=== PATIENT | female | born 1985 | race Caucasian/White ===

== ENCOUNTER 2016-12-21 23:16 | Emergency (ER) ==
[2016-12-21 23:30] VITALS: BP 141/86; TEMP 98.6; BMI 32.2
--- NOTE | 2016-12-22 00:08 | ED.PDOC ---
General ED Provider: Dr. SJ LANCASTER Chief Complaint: Neck Injury Stated Complaint: Patient states she was thrown off horse today at about 530 pm. According to her the horse rared up, pt slid off the back, landed on the ground on her back. Now c/o pain in shoulder blades radiated up neck. Pain is worse with movement. Denies any loss of conciousness. Time Seen by Physician: 11:45 Mode of Arrival: Walk-In Information Source: Patient Exam Limitations: No limitations Primary Care Provider: YVONNE MURDOCK Nursing and Triage Documentation Reviewed and Agree: Yes Trauma/Injury Complaint Exam - Trauma Complaint/Exam Location of Pain or Injury: Reports: Head, Neck, Back Mechanism of Injury: Reports: Fall (off a horse ) Onset/Duration: 6 hours ago Symptoms Are: Still present Timing of Treatment: Immediate Initial Severity: Severe Current Severity: Severe Character: Reports: Aching, Stabbing Aggravating: Reports: Movement Alleviating: Reports: Ice Associated Signs and Symptoms: Denies: LOC, Confusion, Memory loss, Lethargy, Vomiting, Bleeding, Bruising, Swelling, Extremity disuse, Painful respiration, Hoarseness, Dysphagia, Hemoptysis, Significant blood loss Related History: Denies: Alcohol abuse, Drug abuse, Alleged assault : No Compartment Syndrome Risk Factors: Present: Pain Trauma Findings: Present: Neck tenderness, Neck spasm, Limited ROM. Absent: [place] eyes Skin Findings: Present: Normal findings Differential Diagnoses: Sprain, Strain Body Picture: 1 - tendeness to palpation Review of Systems - Review Of Systems Constitutional: Reports: No symptoms Eyes: Reports: No symptoms Ears, Nose, Mouth, Throat: Reports: No symptoms Respiratory: Reports: No symptoms Cardiac: Reports: No symptoms GI: Reports: No symptoms : Reports: No symptoms Musculoskeletal: Reports: Back pain, Neck pain Skin: Reports: No symptoms Neurological: Reports: Anxiety, Headache Endocrine: Reports: No symptoms Hematologic/Lymphatic: Reports: No symptoms All Other Systems: Reviewed and Negative Past Medical History - Past Medical History Previously Healthy: Yes Endocrine: Reports: None Cardiovascular: Reports: Hypertension Respiratory: Reports: None Hematological: Reports: None Gastrointestinal: Reports: None Genitourinary: Reports: None Neuro/Psych: Reports: Depression Musculoskeletal: Reports: None Cancer: Reports: None Last Menstrual Period: 06/25 Other Pertinent Past Medical History: Opiate dependence - Surgical History General Surgical History: Reports: Tubal ligation ( tubal14), Tonsillectomy ( [id number]), Unknown - Family History Family History: Reports: Unknown - Social History Smoking Status: Current some day smoker, Heavy tobacco smoker Hx Substance Use: No Alcohol Screening: None - Immunizations Tetanus Shot up to Date: Yes Physical Exam - Physical Exam Appearance: Obese Ill-appearing: Mild Pain Distress: Severe Neck: Supple Respiratory: Airway patent, Breath sounds clear, Breath sounds equal, Respirations nonlabored Cardiovascular: RRR, Pulses normal, No rub, No murmur GI/: Soft, Nontender, No masses, Bowel sounds normal, No Organomegaly Musculoskeletal: No calf tenderness, Limited ROM Skin: Warm, Dry, Normal color Neurological: Sensation intact, Reflexes intact, Cranial nerves intact, Alert, Oriented Psychiatric: Anxious Interpretation - Radiology Interpretation Radiology Interpretation By: Radiologist Radiology Results: Negative Exam Interpreted: CT Scan (head chest, c spine and lumber spine ) Critical Care Note - Critical Care Note Total Time (mins): 0 Course - Course Orders, Labs, Meds: Orders Category Date Time Status Ketorolac Tromethamine [Toradol] MEDS 12/21/16 23:54 Discontinued 60 mg IM ONCE STA CT CERVICAL SPINE W/O CONTRAST Stat RADS 12/21/16 23:[address] CHEST W/O CONTRAST Stat RADS 12/21/16 23:[address] HEAD W/O CONTRAST Stat RADS 12/21/16 23:[address] LUMBAR SPINE W/O CONTRAST Stat RADS 12/21/16 23:51 Ordered Medications Discontinued Medications Generic Name Dose Route Start Last Admin Trade Name Freq PRN Reason Stop Dose Admin Ketorolac Tromethamine 60 mg 12/21/16 23:54 12/22/16 00:13 Toradol IM 12/21/16 23:55 60 mg ONCE STA Administration Vital Signs: Temp Pulse Resp BP Pulse Ox 12/21/16 23:17 98.6 F 97 H 18 141/86 H 97 Departure - Departure Time of Disposition: :17 Disposition: HOME SELF-CARE Discharge Problem: Back sprain Neck sprain Qualifiers: Encounter type: initial encounter Qualifier Code: (S13.9XXA) Sprain of joints and ligaments of unspecified parts of neck, initial encounter Instructions: Back Pain (ED) Condition: Fair Pt referred to PMD for follow-up: Yes Additional Instructions: Take Ibuprofen as needed Take Flexeril as needed for spasm Follow up with PCP in 3 days Prescriptions: Cyclobenzaprine HCl [Flexeril] 5 mg PO TID PRN #14 tablet PRN Reason: Spasms Allergies/Adverse Reactions: Allergies Penicillins Adverse Reaction (Verified 12/21/16 23:27) strawberries Adverse Reaction (Uncoded 12/21/16 23:27) Home Medications: Ambulatory Orders Buprenorphine HCl/Naloxone HCl [Suboxone 8 Mg-2 Mg Sl Film] 8 mg SL BID film Citalopram Hydrobromide [Celexa] 20 mg PO BID 07/26/14 Hydrochlorothiazide 12.5 mg PO DAILY 03/30/16 Ibuprofen [Motrin] 600 mg PO Q6H PRN #30 tablet 09/08/16 Cyclobenzaprine HCl [Flexeril] 5 mg PO TID PRN #14 tablet 12/22/16 Disposition Discussed With: Patient, Family
[2016-12-22] MEDS: TORADOL IM STA (00:13)
--- NOTE | 2016-12-22 00:37 | CT ---
EXAM: CT brain without contrast HISTORY: Fall from horse TECHNIQUE: CT of the brain without intravenous contrast FINDINGS: There is no acute hemorrhage midline shift or mass effect. No hydrocephalus or abnormal extra-axial fluid collection. No significant parenchymal attenuation abnormality. The bony cranium appears normal. The visualized paranasal sinuses are clear. Soft tissues without significant abnorm ality. IMPRESSION: 1. CT of the brain within normal limits.
--- NOTE | 2016-12-22 00:39 | CT ---
Exam: CT of the chest without contrast History: Fall from horse with injury and pain Technique: [address] of the chest without intravascular contrast FINDINGS: The lung windows show no infiltrative opacities, suspicious nodules or masses. No pleura l fluid or pneumothorax. Heart, great vessels and pericardium appear normal by noncontrast CT. No acute findings of the chest wall soft tissues. No acute findings of the bony thorax. No abnormalit ies of the upper abdomen. Impression: 1. No evidence of significant injury to the chest. No acute findings of the chest.
--- NOTE | 2016-12-22 01:14 | CT ---
EXAM: CT of the cervical spine without contrast. HISTORY: Trauma. PROCEDURE: Contiguous axial CT images of the cervical spine without contrast with coronal and sagit [place] reformats. FINDINGS: There is normal alignment of the cervical vertebral bodies and facets. The vertebral body heights are maintained. There is disc space narrowing at C6-C7. There are posterior osteophytes a t multiple levels of the cervical spine. The C1-2 relationship is maintained. No prevertebral soft tissue abnormality. Impression: No evidence of fracture. Normal alignment of the cervical spine with degenerative changes as described.
--- NOTE | 2016-12-22 01:20 | CT ---
EXAM: CT of the lumbar spine without contrast. HISTORY: Trauma. PROCEDURE: Contiguous axial CT images of the lumbar spine without contrast with coronal and sagitta l reformats. FINDINGS: There is normal alignment of the lumbar vertebral bodies and facets. The vertebral body h eights and intervertebral disc spaces are maintained. There is stranding of the posterior subcutane ous fat consistent with a contusion. Impression: Negative lumbar spine. Soft tissue contusion as described.
== END 2016-12-22 01:30 | disposition home or self-care (01) ==
LOC: ED 23:16
DX: S13.9XXA Sprain of joints and ligaments of unspecified parts of neck, initial encounter (principal); M54.9 Dorsalgia, unspecified; V80.010A Animal-rider injured by fall from or being thrown from horse in noncollision accident, initial encounter; F17.210 Nicotine dependence, cigarettes, uncomplicated
CPT/HCPCS: 96372; 99283

== ENCOUNTER 2017-02-22 12:58 | Outpatient (CLI) ==
[2017-02-22 13:31] LABS: BASOPHILS # (AUTO) 0.1 K/uL (0-0.2); BASOPHILS % (AUTO) 0.5 % (0.0-3.0); EOSINOPHILS # (AUTO) 0.5 K/ul (0.0-0.7); EOSINOPHILS % (AUTO) 5.1 % (0.0-7.0); HEMATOCRIT 37.9 % (37.0-47.0); HEMOGLOBIN 12.9 g/dl (12.0-16.0); IMMATURE GRANULOCYTE % (AUTO) 0.6 % (0.0-5.0); LYMPHOCYTES # (AUTO) 1.6 K/uL (0.60-3.4); LYMPHOCYTES % (AUTO) 16.7 (10.0-50.0); MEAN CORPUSCULAR HEMOGLOBIN 30.1 pg (27.0-31.0); MEAN CORPUSCULAR VOLUME 88.3 fl (81.0-99.0); MONOCYTES # (AUTO) 0.6 K/uL (0.4-2.0); MONOCYTES % (AUTO) 6.3 (0-10); NEUTROPHILS # (AUTO) 6.7 K/ul (2.0-6.9); NEUTROPHILS % (AUTO) 70.8; PLATELET COUNT 309 10^3/uL (140-440); RED BLOOD COUNT 4.29 10^6/ul (4.20-5.40); WHITE BLOOD COUNT 9.53 K/ul (4.6-10.2)
[2017-02-22 13:47] LABS: SERUM PREGNANCY INTERNAL QC INTERNAL QC VALID
[2017-02-22 14:16] LABS: ALBUMIN 3.6 g/dL (3.4-5.0); ANION GAP 12.5; BILIRUBIN,TOTAL 0.46 mg/dL (0.00-1.20); BUN/CREATININE RATIO 6.25; CALCIUM 8.9 mg/dL (8.2-10.2); CHOL/HDL RATIO 8.1 (4.5-5.5); CREATININE 0.64 mg/dL (0.60-1.30); POTASSIUM 3.5 mmol/L (3.5-5.10); TOTAL PROTEIN 7.2 g/dL (6.4-8.2)
== END 2017-02-22 12:59 | disposition home or self-care (01) ==
LOC: LAB 12:58
PROVIDERS: ATTEND Internal Medicine
DX: I10 Essential (primary) hypertension (principal); E78.5 Hyperlipidemia, unspecified; E66.9 Obesity, unspecified
CPT/HCPCS: 36415; 80053; 80061; 83036; 84443; 84703; 85025

== ENCOUNTER 2017-02-28 10:45 | Outpatient (CLI) ==
--- NOTE | 2017-02-28 12:02 | CT ---
EXAM: CT of the abdomen pelvis with and without contrast History: Abdominal pain. Comparison: CT abdomen pelvis 09/08/2016 Technique: Multiplanar CT images through the abdomen pelvis were obtained with and without the admi nistration of IV contrast. Findings: Lung bases are free of consolidation. No acute osseous abnormalities. No renal stones and no hydronephrosis. No discrete gallstones identified by CT. No focal liver or splenic lesions. Pancreas is within nor mal limits. Adrenal glands are unremarkable. No renal masses. The appendix is normal. Fluid seen in the stomach. Nondilated fluid filled loops of small bowel. Fluid seen in the right side of the colon. Scattered colonic stool. No free air. No ascites. No bladder wall thickening. Adnexal s tructures appear appropriate for patient's age. No perirectal inflammation. Impression: CT findings are suggestive of a mild gastroenteritis. No specific evidence for bowel o bstruction.
== END 2017-02-28 10:46 | disposition home or self-care (01) ==
LOC: RAD 10:45
PROVIDERS: ATTEND Internal Medicine
DX: N91.2 Amenorrhea, unspecified (principal); R10.9 Unspecified abdominal pain

== ENCOUNTER 2017-06-08 14:50 | Emergency (ER) ==
[2017-06-08 15:18] VITALS: BP 128/82; TEMP 98.6; BMI 31.7
--- NOTE | 2017-06-08 15:28 | ED.PDOC ---
General ED Provider: Dr. RYNE STEWARD JR Chief Complaint: Urinary Problem Stated Complaint: Dysuria. Urinary frequency and voids small amts. [ End ]1 day 98.6 87 20 98% 128/82 04/18. [ End ]OPIATE DEPENDENCY IN PAST htn depr Time Seen by Physician: 15:26 Mode of Arrival: Walk-In Information Source: Patient Exam Limitations: No limitations Primary Care Provider: SOPHIA HO Nursing and Triage Documentation Reviewed and Agree: No Review of Systems - Review Of Systems Constitutional: Reports: No symptoms Eyes: Reports: No symptoms Ears, Nose, Mouth, Throat: Reports: No symptoms Respiratory: Reports: No symptoms Cardiac: Reports: No symptoms GI: Reports: Abdominal pain : Reports: Burning, Dysuria, Flank pain, Other Musculoskeletal: Reports: No symptoms Skin: Reports: No symptoms Neurological: Reports: No symptoms Endocrine: Reports: No symptoms Hematologic/Lymphatic: Reports: No symptoms All Other Systems: Other Past Medical History - Past Medical History Previously Healthy: Yes Endocrine: Reports: None Cardiovascular: Reports: Hypertension Respiratory: Reports: None Hematological: Reports: None Gastrointestinal: Reports: None Genitourinary: Reports: None Neuro/Psych: Reports: Depression Musculoskeletal: Reports: None Cancer: Reports: None Last Menstrual Period: unknown Other Pertinent Past Medical History: Opiate dependence - Surgical History General Surgical History: Reports: Tubal ligation ( tubal14 , TUBAL lig 07/25), Tonsillectomy ([id number] ), Adenoidectomy, Other (EAR TUBES) - Family History Family History: Reports: Unknown - Social History Smoking Status: Current some day smoker, Light tobacco smoker Hx Substance Use: No Alcohol Screening: None Physical Exam - Physical Exam Appearance: Well-appearing Pain Distress: Moderate Eyes: ALICIA, EOMI, Conjunctiva clear ENT: Ears normal, Nose normal, Oropharynx normal Neck: Supple Respiratory: Airway patent, Breath sounds clear, Breath sounds equal, Respirations nonlabored Cardiovascular: RRR, Pulses normal, No rub, No murmur GI/: Soft, Tender (both CVA tender and right injuinal tenderness ) Musculoskeletal: Normal strength, ROM intact, No edema, No calf tenderness Skin: Warm, Dry, Normal color Neurological: Sensation intact, Motor intact, Reflexes intact, Cranial nerves intact, Alert, Oriented Psychiatric: Affect appropriate, Mood appropriate Critical Care Note - Critical Care Note Total Time (mins): 5 Course - Course Orders, Labs, Meds: Lab Review 06/08/17 15:20 Urine Color Yellow Urine Clarity Clear Urine pH 7.0 Ur Specific [place] 1.010 Urine Protein Negative Urine Glucose (UA) Negative Urine Ketones Negative Urine Blood Trace-intact Urine Nitrite Negative Urine Bilirubin Negative Urine Urobilinogen 1.0 Ur Leukocyte Esterase Negative Urine Microscopic RBC 0-2 Ur Squamous Epith Cells 0-2 Orders Category Date Time Status UA [URINALYSIS C & S IF INDICATED] Stat LAB 06/08/17 15:20 Completed Ketorolac Tromethamine [Toradol] MEDS 06/08/17 15:51 Discontinued 60 mg IM ONCE STA CT ABD/PEL WO RENAL STONE PROT Stat RADS 06/08/17 15:50 Completed Medications Discontinued Medications Generic Name Dose Route Start Last Admin Trade Name Freq PRN Reason Stop Dose Admin Ketorolac Tromethamine 60 mg 06/08/17 15:51 06/08/17 16:00 Toradol IM 06/08/17 15:52 60 mg ONCE STA Administration Vital Signs: Temp Pulse Resp BP Pulse Ox 06/08/17 14:51 98.6 F 87 20 128/82 98 Departure - Departure Time of Disposition: 16:41 Disposition: HOME SELF-CARE Discharge Problem: Urinary symptoms, Abdominal pain Instructions: Acute Abdominal Pain (ED), Flank Pain (ED) Condition: Fair Pt referred to PMD for follow-up: Yes Additional Instructions: toradol or aleve for pain do not take both together increase fluids 6-10 eight ounce cups a day return if fever if worsening symptoms recheck PMD one week may use pyridium for painful urination may use bentyl for spasmodic pain Prescriptions: Dicyclomine HCl [Bentyl] 10 mg PO QID PRN #30 capsule PRN Reason: Spasms Ketorolac Tromethamine [Toradol] 10 mg PO QID PRN #20 tablet PRN Reason: PAIN Phenazopyridine HCl [Pyridium] 200 mg PO TID PRN #10 tablet PRN Reason: PAIN Allergies/Adverse Reactions: Allergies Penicillins Adverse Reaction (Verified 06/08/17 15:26) strawberries Adverse Reaction (Uncoded 12/21/16 23:27) Home Medications: Ambulatory Orders Buprenorphine HCl/Naloxone HCl [Suboxone 8 Mg-2 Mg Sl Film] 8 mg SL BID film 10 /17/14 Citalopram Hydrobromide [Celexa] 20 mg PO BID 07/26/14 Hydrochlorothiazide 12.5 mg PO DAILY 03/30/16 Dicyclomine HCl [Bentyl] 10 mg PO QID PRN #30 capsule 06/08/17 Ketorolac Tromethamine [Toradol] 10 mg PO QID PRN #20 tablet 06/08/17 Phenazopyridine HCl [Pyridium] 200 mg PO TID PRN #10 tablet 06/08/17
[2017-06-08 15:33] LABS: BILIRUBIN,URINE Negative (NEGATIVE); KETONES,URINE Negative (NEGATIVE); LEUKOCYTE ESTERASE ,URINE Negative (NEGATIVE); NITRITE,URINE Negative (NEGATIVE); PROTEIN,URINE Negative (NEGATIVE); URINE, BLOOD Trace-intact (NEGATIVE)
[2017-06-08 15:43] LABS: ADD URINE MICROSCOPIC YES
[2017-06-08] MEDS ORDERED: TORADOL IM STA (15:51)
--- NOTE | 2017-06-08 16:32 | CT ---
EXAM: CT Abdomen without contrast. CT Pelvis without contrast. HISTORY: Right flank pain. Right inguinal pain. COMPARISON: 02/28/2017. TECHNIQUE: Multiple axial images of the abdomen and pelvis were obtained without intravenous contra st. Images were reformatted in the coronal plane. FINDINGS: Please note that evaluation of the abdominal and pelvic structures is limited due to lack of intravenous contrast. Lung bases are clear. No acute osseous abnormality detected. The liver, gallbladder, pancreas, spleen, and adrenal glands demonstrate normal contour. No calcifi ed renal stones, hydronephrosis or perinephric inflammation identified. The bowel is normal in course and caliber without evidence for obstruction or inflammatory process. The appendix is normal. Uterus demonstrates normal contour. Urinary bladder is unremarkable. Pro minent fat noted in the right inguinal canal. No subcutaneous edema or fluid collections identified . No free fluid or free air seen within the abdomen or pelvis IMPRESSION: No acute abnormality in the abdomen or pelvis.
== END 2017-06-08 17:15 | disposition home or self-care (01) ==
LOC: ED 14:50
DX: R30.0 Dysuria (principal); R35.0 Frequency of micturition; R10.9 Unspecified abdominal pain; I10 Essential (primary) hypertension; F17.210 Nicotine dependence, cigarettes, uncomplicated; Z79.899 Other long term (current) drug therapy
CPT/HCPCS: 74176; 81001; 96372; 99283

== ENCOUNTER 2017-12-05 14:38 | Emergency (ER) ==
[2017-12-05 14:45] VITALS: BP 118/76; TEMP 97.6; BMI 34.0
--- NOTE | 2017-12-05 16:24 | ED.PDOC ---
General ED Provider: Dr. JANELLE SHINE Chief Complaint: Abdominal Pain Stated Complaint: Right Lowerr quadrant pain X 1 day Time Seen by Physician: 16:24 Mode of Arrival: Walk-In Information Source: Patient Exam Limitations: No limitations Primary Care Provider: SOPHIA HO Nursing and Triage Documentation Reviewed and Agree: Yes Reviewed sepsis parameters & appropriate labs ordered?: Yes System Inflammatory Response Syndrome: Not Applicable Sepsis Protocol: For patient's 13 years and over: Temp is 96.8 and below OR 101 and greater Pulse >90 BPM Resp >20/minute Acutely Altered Mental Status Are patient's symptoms suggestive of a new infection, such as: -Pneumonia -Skin, Soft Tissue -Endocarditis -UTI -Bone, Joint Infection -Implantable Device -Acute Abdominal Infection -Wound Infection -Meningitis -Blood Stream Catheter Infection -Unknown System Inflammatory Response Syndrome: Not Applicable GI Complaint Exam - Abdominal Pain Complaint/Exam Onset: Gradual Duration: Since this AM Symptoms Are: Still present Timing: Constant Initial Severity: Mild Current Severity: Moderate Location of Pain: RLQ Character: Reports: Sharp Aggravating: Reports: None Alleviating: Reports: None Related Surgical History: Reports: Tubal ligation (Jul 2016) Review of Systems - Review Of Systems Constitutional: Reports: No symptoms Respiratory: Reports: No symptoms GI: Reports: Nausea. Denies: Vomiting Musculoskeletal: Reports: No symptoms All Other Systems: Reviewed and Negative Past Medical History - Past Medical History Previously Healthy: Yes Endocrine: Reports: None Cardiovascular: Reports: Hypertension Respiratory: Reports: None Hematological: Reports: None Gastrointestinal: Reports: None Genitourinary: Reports: None Neuro/Psych: Reports: Depression Musculoskeletal: Reports: None Cancer: Reports: None Last Menstrual Period: 07/2016 Other Pertinent Past Medical History: Opiate dependence - Surgical History General Surgical History: Reports: Tubal ligation ( tubal14 , TUBAL lig 07/25), Tonsillectomy ([id number] ), Adenoidectomy, Other (EAR TUBES) - Family History Family History: Reports: Unknown - Social History Smoking Status: Current some day smoker, Light tobacco smoker Hx Substance Use: No Alcohol Screening: None Physical Exam - Physical Exam Appearance: Well-appearing Pain Distress: Mild (Point tender RLQ) Respiratory: Airway patent, Breath sounds clear, Breath sounds equal Cardiovascular: RRR, Pulses normal GI/: Soft, Tender (Mild subjective tenderness R Lower Quadrant; no rebound) Skin: Warm, Dry, Normal color Neurological: Alert, Oriented Psychiatric: Affect appropriate, Mood appropriate Interpretation - Radiology Interpretation Radiology Interpretation By: Radiologist Exam Interpreted: CT Scan (Abd pelvis negative - no inflammatory process, bowell or urinary obstruction - no acute findings) Re-Evaluation - Re-Evaluation Time of Re-Evaluation: 18:30 (Educated re [address] scan negative) Status: Unchanged Vital Signs Stable: Yes Appearance: NAD Critical Care Note - Critical Care Note Total Time (mins): 15 Course - Course Hematology/Chemistry: 12/05/17 16:30 12/05/17 16:30 Orders, Labs, Meds: Lab Review 12/05/17 12/05/17 12/05/17 16:30 16:30 16:30 WBC 17.06 H RBC 4.07 L Hgb 12.3 Hct 35.9 L MCV 88.2 MCH 30.2 MCHC 34.3 RDW Coeff of Karlos 12.8 Plt Count 284 Immature Gran % (Auto) 0.8 Neut % (Auto) 73.3 Lymph % (Auto) 16.2 Pershing % (Auto) 5.9 Eos % (Auto) 3.4 Baso % (Auto) 0.4 Immature Gran # (Auto) 0.1 Neut # 12.5 H Lymph # 2.8 Pershing # 1.0 Eos # 0.6 Baso # 0.1 Sodium 139 Potassium 3.3 L Chloride 102 Carbon Dioxide 31 Anion Gap 9.3 BUN 4 L Creatinine 0.63 Estimated GFR (MDRD) 110.00 BUN/Creatinine Ratio 6.34 Glucose 101 Calcium 8.9 Total Bilirubin 0.3 AST 20 ALT 18 Alkaline Phosphatase 84 Total Protein 6.8 Albumin 3.2 L Globulin 3.6 Albumin/Globulin Ratio 0.89 Serum , Qual Negative Urine Color Urine Clarity Urine pH Ur Specific Rudolph Urine Protein Urine Glucose (UA) Urine Ketones Urine Blood Urine Nitrite Urine Bilirubin Urine Urobilinogen Ur Leukocyte Esterase Urine Test 12/05/17 12/05/17 16:30 16:30 WBC RBC Hgb Hct MCV MCH MCHC RDW Coeff of Karlos Plt Count Immature Gran % (Auto) Neut % (Auto) Lymph % (Auto) Pershing % (Auto) Eos % (Auto) Baso % (Auto) Immature Gran # (Auto) Neut # Lymph # Pershing # Eos # Baso # Sodium Potassium Chloride Carbon Dioxide Anion Gap BUN Creatinine Estimated GFR (MDRD) BUN/Creatinine Ratio Glucose Calcium Total Bilirubin AST ALT Alkaline Phosphatase Total Protein Albumin Globulin Albumin/Globulin Ratio Serum , Qual Urine Color Yellow Urine Clarity Clear Urine pH 6.5 Ur Specific Rud[place] 1.010 Urine Protein Negative Urine Glucose (UA) Negative Urine Ketones Negative Urine Blood Negative Urine Nitrite Negative Urine Bilirubin Negative Urine Urobilinogen 0.2 Ur Leukocyte Esterase Negative Urine Test Negative Orders Category Date Time Status CBC W/ AUTO DIFF Stat LAB 12/05/17 16:30 Completed COMPREHENSIVE METABOLIC PANEL Stat LAB 12/05/17 16:30 Completed SERUM Stat LAB 12/05/17 16:30 Completed URINALYSIS C & S IF INDICATED Stat LAB 12/05/17 16:30 Completed URINE Stat LAB 12/05/17 16:[address] ABDOMEN/PELVIS WO CONTRAST Stat RADS 12/05/17 17:22 Completed Vital Signs: Temp Pulse Resp BP Pulse Ox 12/05/17 14:38 97.6 F 77 20 118/76 92 L Departure - Departure Time of Disposition: 18:39 Disposition: HOME SELF-CARE Discharge Problem: Abdominal pain Qualifiers: Abdominal location: right lower quadrant Qualified Code(s): R10.31 - Right lower quadrant pain Instructions: Acute Abdominal Pain (ED) Condition: Good Pt referred to PMD for follow-up: Yes (Call for follow up) IPMP verified?: No (Narcotic pain medication not prescribed) Additional Instructions: Follow up as needed with primary care; return to ER if fever 101.5 or above, increased pain and vomiting or other concerns. Allergies/Adverse Reactions: Allergies Penicillins Adverse Reaction (Verified 12/05/17 14:45) strawberries Adverse Reaction (Uncoded 12/21/16 23:27) Home Medications: Ambulatory Orders Buprenorphine HCl/Naloxone HCl [Suboxone 8 Mg-2 Mg Sl Film] 8 mg SL BID film Citalopram Hydrobromide [Celexa] 20 mg PO BID 07/26/14 Hydrochlorothiazide 12.5 mg PO DAILY 03/30/16
--- NOTE | 2017-12-05 18:12 | CT ---
Exam: CT of the abdomen and pelvis without contrast History: Right lower quadrant pain Technique: [address] of the abdomen and pelvis without intravascular contrast FINDINGS: The lung bases are clear. No significant liver abnormality. The adrenals, pancreas and spl een are unremarkable. The stomach and hiatus are unremarkable.The gallbladder appears normal. Kidneys and proximal collecting system are unremarkable. The appendix is normal. Bowel loops demonstrate nor mal caliber. No inflamatory change seen in the mesentery or retroperitoneum. Vascular structures appe ar normal. Pelvic genitourinary structures appear normal. Pelvic bowel loops are unremarkable. No inflammatory c hange in the pelvic fat. No acute abnormality of the abdominal or pelvic skeleton. Impression: 1. No inflammatory process, bowel or urinary obstruction. No acute findings of the abdomen or pelvi s.
== END 2017-12-05 18:53 | disposition home or self-care (01) ==
LOC: ED 14:38
DX: R10.31 Right lower quadrant pain (principal); F17.210 Nicotine dependence, cigarettes, uncomplicated
CPT/HCPCS: 36415; 80053; 81001; 81025; 84703; 85025; 99283

== ENCOUNTER 2018-01-10 14:28 | Outpatient (CLI) | END 2018-01-10 14:29 | disposition home or self-care (01) | LOC: LAB 14:28 | PROVIDERS: ATTEND Internal Medicine | DX: F41.9 Anxiety disorder, unspecified (principal); I10 Essential (primary) hypertension; E78.5 Hyperlipidemia, unspecified | CPT/HCPCS: 36415; 80053; 80061; 82306; 82607; 83036; 84439; 84443; 85025 ==

== ENCOUNTER 2024-12-04 11:51 | Observation (INO) ==
[2024-12-04 12:32] LABS: BILIRUBIN,URINE Negative (NEGATIVE); CLARITY,URINE Clear (CLEAR); COLOR,URINE Light (YELLOW); GLUCOSE, URINE (UA) Negative (NEGATIVE); KETONES,URINE Trace (NEGATIVE); LEUKOCYTE ESTERASE ,URINE Negative (NEGATIVE); NITRITE,URINE Negative (NEGATIVE); PROTEIN,URINE 2+ (NEGATIVE); URINE, BLOOD Negative (NEGATIVE)
[2024-12-04] MEDS: ZOFRAN ODT PO STA (13:05)
[2024-12-04 13:18] LABS: MOLECULAR FLU A NEGATIVE BY NAAT (NEGATIVE); MOLECULAR FLU B NEGATIVE BY NAAT (NEGATIVE); SARS COV-2 RNA RAPID NAAT NEGATIVE (NEGATIVE)
--- NOTE | 2024-12-04 13:20 | DI ---
EXAM: FRONTAL CHEST RADIOGRAPH(S). 1 VIEW. History: Chest pain, shortness of breath Comparison: 06/03/2020 Findings: Heart size normal. No pneumothorax or pleural effusion. Patchy opacities in the lateral ri ght lung base secondary to pneumonia, atelectasis, or parenchymal scarring. Impression: Please see above.
--- NOTE | 2024-12-04 13:35 | ED.PDOC ---
General ED Provider: Dr. MICHAEL GUTIERREZ DO Chief Complaint: Cough Stated Complaint: 38-year-old female presents to the ER with cough and feeling unwell. Generalized body aches. No known sick contacts. She reports a nonproductive cough as well as subjective fever. She reports nausea without vomiting. Denies of abdominal pain, melena, medic easier, diarrhea or constipation. History of hypertension as well as diabetes. History otherwise reviewed in chart. Time Seen by Provider: 12/04/24 11:53 Information Source: Patient Primary Care Provider: SOPHIA HO MD Nursing and Triage Documentation Reviewed and Agree: Yes What is Opioid Naive?: *Opioid Naive implies the patient is not already taking opioids or not chronically receiving opioids on a daily basis. *PRN dosing is not "usually" associated with tolerance. *Patients are at higher risk of over-sedation and aspiration. What is Opioid Tolerant?: *Opioid Tolerance implies less than the expected response to an opioid. *Acquired tolerance is defined by the patient taking 60mg of oral morphine daily (or equianalgesic dose of another opioid) for 1 week or more. *Often associated with chronic pain. *May take more than usual dose to achieve desired pain control. Review of Systems Review Of Systems Constitutional: Reports No symptoms All Other Systems: Reviewed and Negative [facility] Medical History Postcholecystectomy diarrhea R19.7 - Diarrhea, unspecified (ICD-10) Z90.49 - Acquired absence of other specified parts of digestive tract (ICD- 10) Other specified events, undetermined intent, initial encounter history of drug abuse Y33.XXXA - Other specified events, undetermined intent, initial encounter (ICD-10) Family History Mother Cerebrovascular accident Hypertension FATHER Hypertension Grandfather/Grandmother Cardiac disease Hypertension Other Diabetes Social History Smoking and tobacco status: Current every day smoker Tobacco type: cigarettes Smoking packs per day: 1 Alcohol intake: former Counseling given: No Counseling provided: none Substance use type: does not use and former substance user Counseling given: No Counseling provided: none Elizabeth/jehovah's witness: PRESBYTERIAN Special elizabeth needs: No Adopted: No Foster care: No Household members: spouse and children Marital status: M Lives independently: No Number of children: 4 service: No Current occupational status: unemployed Current occupational exposures/hazards: No Pets and animals: Yes History of recent travel: No Sexually active: Yes Do you think of yourself as: straight/heterosexual Current gender identity: female Seatbelt use: always Helmet use: Yes Drives intoxicated or rides with intoxicated over the road driver: No Water heater temperature set < 120 degrees: Yes Working smoke detector in home: Yes Fire extinguisher in home: Yes Carbon monoxide detector in home: Yes Surgical History H/O tubal ligation Z98.51 - Tubal ligation status (ICD-10) Status post tonsillectomy and adenoidectomy Z90.89 - Acquired absence of other organs (ICD-10) Female Reproductive History Menstrual Hx Hysterectomy: Yes Hx Tubal Ligation: Yes Physical Exam Physical Exam Appearance: Reports Ill-appearing, No pain distress and Well-nourished Ill-appearing: Mild ENT: Reports Ears normal, Nose normal and Oropharynx normal Neck: Supple Respiratory: Reports Airway patent and Respirations nonlabored Cardiovascular: Reports RRR and Pulses normal GI/: Reports Soft and Nontender Musculoskeletal: Reports Normal strength and ROM intact Skin: Reports Warm, Dry and Normal color Neurological: Reports Sensation intact, Motor intact, Alert and Oriented Psychiatric: Reports Affect appropriate and Mood appropriate Interpretation Radiology Interpretation Radiology Interpretation By: Radiologist Radiology Results: Positive (Right basilar opacities) Exam Interpreted: Portable CXR Xray Comments: Suspect pneumonia Re-Evaluation Re-Evaluation Additional Comments: 38-year-old female presents to the ER with cough and subjective fever as well as nausea. She does have a cough during exam. She is afebrile nontoxic. Doubt sepsis. Pneumonia not excluded given her history of diabetes. Viral swabs negative. Chest x-ray concerning for possible pneumonia which would coincide with the physical exam and suspicion. This said, we will begin treatment. Penicillin allergy therefore we will utilize Levaquin. Breathing treatment given symptomatically. Low suspicion for other acute cardiopulmonary or intra-abdominal process at this time. I do not feel other emergent labs or imaging are necessary at this time and patient has been treated and stabilized in the emergency department ready for discharge. Course Course Orders, Labs, Meds: Lab Review 12/04/24 12/04/24 12:24 12:45 Urine Color Light Urine Clarity Clear Urine pH 6.0 Ur Specific [place] 1.015 Urine Protein 2+ H Urine Glucose (UA) Negative Urine Ketones Trace H Urine Blood Negative Urine Nitrite Negative Urine Bilirubin Negative Urine Urobilinogen 1.0 H Ur Leukocyte Esterase Negative Urine Microscopic RBC 2-5 Ur Squamous Epith Cells 2-5 Influ A Molecular Assay Negative by naat Influ B Molecular Assay Negative by naat SARS CoV-2 RNA Rapid TADEO Negative Orders Category Date Time Status FLU A/B MOLECULAR Stat LAB 12/04/24 12:45 Completed SARS COV-2 RNA RAPID TADOE Stat LAB 12/04/24 12:45 Completed URINALYSIS C & S IF INDICATED Stat LAB 12/04/24 12:24 Completed Levofloxacin [Levaquin] Meds 12/04/24 13:31 Once 750 mg PO ONCE ONE Ondansetron [Zofran Odt] Meds 12/04/24 12:58 Discontinued 4 mg PO ONCE STA CHEST, 1V AP ONLY Stat RADS 12/04/24 12:50 Completed Medications Discontinued Medications Generic Name Dose Route Start Last Admin Trade Name Freq PRN Reason Stop Dose Admin Ondansetron HCl 4 mg 12/04/24 12:58 12/04/24 13:05 Ondansetron Hcl 4 Mg Tab.Rapdis PO 12/04/24 12:59 4 mg ONCE STA Administration Vital Signs: Temp Pulse Resp BP Pulse Ox 12/04/24 12:04 98.0 F 96 20 146/95 H 93 L Discharge Plan Discharge Patient Disposition: HOME SELF-CARE Discharge Problem: Pneumonia Instructions: Community Acquired Pneumonia (DC) Prescriptions: New levofloxacin 750 mg tablet 750 mg PO DAILY 5 Days Qty: 5 0RF (DME) nebulizer and compressor Device See Rx Instructions .ROUTE .MEDSUPPLY Qty: 1 0RF Rx Instructions: As directed albuterol sulfate 2.5 mg /3 mL (0.083 %) solution for nebulization 2.5 mg inhalation Q4-6H PRN (Reason: shortness of breath or wheezing) Qty: 90 0RF ondansetron 4 mg tablet,disintegrating 4 mg PO Q6H PRN (Reason: nausea and vomiting) Qty: 30 0RF No Action buprenorphine-naloxone [Suboxone] 1 EACH film 8 mg sublingual BID fluticasone propionate 50 mcg/actuation spray,suspension See Rx Instructions .ROUTE .COMPLEX Qty: 48 0RF Dose Instruction: SHAKE LIQUID AND USE 2 SPRAYS IN EACH NOSTRIL DAILY Rx Instructions: SHAKE LIQUID AND USE 2 SPRAYS IN EACH NOSTRIL DAILY albuterol sulfate 90 mcg/actuation HFA aerosol inhaler 2 puff PO Q6H PRN (Reason: for wheezing) Qty: 8.5 0RF triamterene-hydrochlorothiazid 37.5-25 mg capsule 1 cap PO QAM PRN (Reason: swelling) Qty: 30 0RF Ozempic 1 mg/dose (4 mg/3 mL) pen injector 1 mg subcut WEEKLY Qty: 3 2RF ondansetron 4 mg tablet,disintegrating 4 mg PO Q8H PRN (Reason: for nausea/vomiting) Qty: 14 0RF estradiol [Estrace] 1 mg tablet 1 mg PO QDAY Rx Instructions: off 1 week; repeat cycle Trelegy Ellipta 100-62.5-25 mcg blister with device 1 inh inhalation QDAY escitalopram oxalate 20 mg tablet 20 mg PO DAILY Qty: 30 5RF hydrochlorothiazide 12.5 mg capsule 12.5 mg PO DAILY Qty: 30 2RF lisinopril 5 mg tablet See Rx Instructions .ROUTE .COMPLEX Qty: 90 0RF Dose Instruction: TAKE 1 TABLET BY MOUTH DAILY Rx Instructions: TAKE 1 TABLET BY MOUTH DAILY metformin 1,000 mg tablet 1,000 mg PO 2XD Qty: 180 0RF potassium chloride 20 mEq tablet,ER particles/crystals See Rx Instructions .ROUTE .COMPLEX Qty: 30 0RF Dose Instruction: TAKE ONE TABLET DAILY; TAKE WITH HCTZ Rx Instructions: TAKE ONE TABLET DAILY; TAKE WITH HCTZ rosuvastatin 20 mg tablet See Rx Instructions .ROUTE .COMPLEX Qty: 30 5RF Dose Instruction: TAKE ONE TABLET DAILY Rx Instructions: TAKE ONE TABLET DAILY (DME) blood-glucose meter [Blood Glucose Monitoring] Kit See Rx Instructions .ROUTE Qty: 1 0RF Rx Instructions: As directed (DME) lancets Misc See Rx Instructions .ROUTE Qty: 100 0RF Rx Instructions: As directed to check blood sugar bid prn (DME) Blood Glucose Test Strip See Rx Instructions .ROUTE Qty: 60 2RF Rx Instructions: As directed to check blood sugar bid prn Did you review [place] RESEARCH EDITOR for ALL controlled substances?: Not Applicable Discussed opioids are addictive and Narcan is available by prescription or from pharmacy.: No ED Provider: MICHAEL GUTIERREZ Referrals: SOPHIA HO MD [Primary Care Provider] - Condition: Stable
[2024-12-04] MEDS ORDERED: LEVAQUIN ONE (13:36)
[2024-12-04] MEDS: LEVAQUIN PO ONE (13:37)
[2024-12-04] MEDS: DUONEB NEB STA (14:06)
[2024-12-04] MEDS: MUCOMYST 20% NEB NEB STA (14:11)
[2024-12-04 15:48] LABS: BASOPHILS % (AUTO) 0.4 % (0.0-3.0); EOSINOPHILS # (AUTO) 0.1 K/ul (0.0-0.7); EOSINOPHILS % (AUTO) 1.2 % (0.0-7.0); HEMATOCRIT 44.6 % (37.0-47.0); HEMOGLOBIN 14.3 g/dl (12.0-16.0); IMMATURE GRANULOCYTE % (AUTO) 0.4 % (0.0-5.0); LYMPHOCYTES # (AUTO) 3.1 K/uL (0.60-3.4); LYMPHOCYTES % (AUTO) 29.6 (10.0-50.0); MEAN CORPUSCULAR HEMOGLOBIN 28.8 pg (27.0-31.0); MEAN CORPUSCULAR HGB CONC 32.1 (31.8-35.4); MEAN CORPUSCULAR VOLUME 89.7 fl (81.0-99.0); MONOCYTES # (AUTO) 0.6 K/uL (0.4-2.0); MONOCYTES % (AUTO) 5.9 (0-10); NEUTROPHILS # (AUTO) 6.6 K/ul (2.0-6.9); NEUTROPHILS % (AUTO) 62.5 % (42.2-75.2); PLATELET COUNT 341 10^3/uL (140-440); RDW COEFFICIENT OF VARIATION 12.5 % (11.6-14.8); RED BLOOD COUNT 4.97 10^6/ul (4.20-5.40); WHITE BLOOD COUNT 10.55 K/ul (4.6-10.2)
[2024-12-04 16:00] LABS: ALANINE AMINOTRANSFERASE 34.2 U/L (0-35); ALBUMIN 4.64 g/dL (3.5-5.0); ALKALINE PHOSPHATASE 117.7 U/L (38-126); ASPARTATE AMINO TRANSFERASE 52.4 U/L (14-36); BILIRUBIN,TOTAL 1.04 mg/dL (0.2-1.3); BLOOD UREA NITROGEN 17.2 mg/dL (7-17); CALCIUM 9.41 mg/dL (8.4-10.2); CARBON DIOXIDE 33.4 mmol/L (22-30.0); CHLORIDE 91.4 mmol/L (98-107); CREATININE 1.22 mg/dL (0.60-1.30); GLUCOSE 122.5 mg/dL (74-106); POTASSIUM 3.5 mmol/L (3.5-5.1); SODIUM 134.1 mmol/L (134.5-145); TOTAL PROTEIN 8.4 g/dL (6.3-8.2)
[2024-12-04] MEDS ORDERED: HUMULIN R (10ML) SUBCUT PRN (17:13)
[2024-12-04] MEDS ORDERED: TYLENOL PO PRN (17:13)
[2024-12-04 17:14] VITALS: BMI 36.4
[2024-12-04] MEDS ORDERED: ZOFRAN SDV IVP PRN (17:18)
[2024-12-04] MEDS: DUONEB NEB SCH (18:10)
[2024-12-04 19:32] LABS: BILIRUBIN,URINE Negative (NEGATIVE); CLARITY,URINE Clear (CLEAR); COLOR,URINE Yellow (YELLOW); GLUCOSE, URINE (UA) Negative (NEGATIVE); KETONES,URINE Trace (NEGATIVE); LEUKOCYTE ESTERASE ,URINE Negative (NEGATIVE); NITRITE,URINE Negative (NEGATIVE); PROTEIN,URINE 1+ (NEGATIVE); URINE, BLOOD Negative (NEGATIVE); UROBILINOGEN,URINE 0.2 (0.2)
[2024-12-04 19:39] LABS: BACTERIA,URINE 1+ (NOT PRESENT); MUCUS,URINE 1+ (NOT PRESENT)
[2024-12-04] MEDS: SYMBICORT 160-4.5 MCG INHALER IH SCH (20:12)
[2024-12-05 05:29] LABS: BASOPHILS % (AUTO) 0.2 % (0.0-3.0); EOSINOPHILS # (AUTO) 0.1 K/ul (0.0-0.7); EOSINOPHILS % (AUTO) 1.2 % (0.0-7.0); HEMATOCRIT 40.6 % (37.0-47.0); HEMOGLOBIN 13.1 g/dl (12.0-16.0); IMMATURE GRANULOCYTE # (AUTO) 0.1 (0.0-1.0); IMMATURE GRANULOCYTE % (AUTO) 0.5 % (0.0-5.0); LYMPHOCYTES # (AUTO) 2.6 K/uL (0.60-3.4); LYMPHOCYTES % (AUTO) 21.4 (10.0-50.0); MEAN CORPUSCULAR HEMOGLOBIN 28.9 pg (27.0-31.0); MEAN CORPUSCULAR HGB CONC 32.3 (31.8-35.4); MEAN CORPUSCULAR VOLUME 89.4 fl (81.0-99.0); MONOCYTES # (AUTO) 0.8 K/uL (0.4-2.0); MONOCYTES % (AUTO) 6.8 (0-10); NEUTROPHILS # (AUTO) 8.5 K/ul (2.0-6.9); NEUTROPHILS % (AUTO) 69.9 % (42.2-75.2); PLATELET COUNT 289 10^3/uL (140-440); RDW COEFFICIENT OF VARIATION 12.5 % (11.6-14.8); RED BLOOD COUNT 4.54 10^6/ul (4.20-5.40); WHITE BLOOD COUNT 12.17 K/ul (4.6-10.2)
[2024-12-05 05:45] LABS: ALANINE AMINOTRANSFERASE 28.9 U/L (0-35); ALBUMIN 4.18 g/dL (3.5-5.0); ALKALINE PHOSPHATASE 104.7 U/L (38-126); BILIRUBIN,TOTAL 0.63 mg/dL (0.2-1.3); BLOOD UREA NITROGEN 19.2 mg/dL (7-17); CALCIUM 8.88 mg/dL (8.4-10.2); CARBON DIOXIDE 36.1 mmol/L (22-30.0); CHLORIDE 92.2 mmol/L (98-107); CREATININE 1.3 mg/dL (0.60-1.30); GLUCOSE 141.7 mg/dL (74-106); POTASSIUM 3.63 mmol/L (3.5-5.1); SODIUM 135.1 mmol/L (134.5-145); TOTAL PROTEIN 7.45 g/dL (6.3-8.2)
[2024-12-05] MEDS: FLONASE NAS SCH (08:55)
[2024-12-05] MEDS: SPIRIVA IH SCH (08:56)
[2024-12-05] MEDS: ESTRADIOL PO SCH (08:58)
[2024-12-05] MEDS: CRESTOR PO SCH (08:58)
[2024-12-05] MEDS: K-DUR PO SCH (08:59)
[2024-12-05] MEDS: HYDROCHLOROTHIAZIDE PO SCH (08:59)
[2024-12-05] MEDS: LEXAPRO PO SCH (08:59)
[2024-12-05] MEDS: ZESTRIL PO SCH (08:59)
[2024-12-05] MEDS: LEVAQUIN 750 MG/150 ML D5W 750 MG/150 ML BAG IV SCH (09:03)
--- NOTE | 2024-12-05 09:27 | PCM.SS ---
Provider Provider: LEX SESAY, [facility] Admission Date Admission Date: 12/04/24 Discharge Date Discharge Date: 12/05/24 Primary Care Physician Primary Care Physician: SOPHIA GOTTLIEB MD Chief Complaint Reason For Visit: PNEUMONIA, DM History of Present Illness History of Present Illness: Admitted 12/04/24 16:38, this 38 year old /WHITE/F with pmh of DM2, COPD, HTN, Opiate addiction presented to the ER with complaints of shortness of breath. States she has been sick for approximately 1 month. Has had covid and the flu without treatment with antibiotics or steroids. Found to have pneumonia to R lung base. White count mildly elevated. Rest of labs unremarkable. O2 sat was dropping down to 89 in ER and was placed on 2L. Admitted to med/surg observation. Feeling much better this am and was able to be weaned to RA. Requesting discharge. [facility] Medical History Postcholecystectomy diarrhea R19.7 - Diarrhea, unspecified (ICD-10) Z90.49 - Acquired absence of other specified parts of digestive tract (ICD- 10) Other specified events, undetermined intent, initial encounter history of drug abuse Y33.XXXA - Other specified events, undetermined intent, initial encounter (ICD-10) Surgical History H/O tubal ligation Z98.51 - Tubal ligation status (ICD-10) Status post tonsillectomy and adenoidectomy Z90.89 - Acquired absence of other organs (ICD-10) Family History Mother Cerebrovascular accident Hypertension FATHER Hypertension Grandfather/Grandmother Cardiac disease Hypertension Other Diabetes Social History Smoking and tobacco status: Current every day smoker Tobacco type: cigarettes Smoking packs per day: 1 Alcohol intake: former Counseling given: No Counseling provided: none Substance use type: does not use and former substance user Counseling given: No Counseling provided: none Elizabeth/amish: PRESBYTERIAN Special elizabeth needs: No Adopted: No Foster care: No Household members: spouse and children Marital status: M Lives independently: No Number of children: 4 service: No Current occupational status: unemployed Current occupational exposures/hazards: No Pets and animals: Yes History of recent travel: No Sexually active: Yes Do you think of yourself as: straight/heterosexual Current gender identity: female Seatbelt use: always Helmet use: Yes Drives intoxicated or rides with intoxicated company truck driver: No Water heater temperature set < 120 degrees: Yes Working smoke detector in home: Yes Fire extinguisher in home: Yes Carbon monoxide detector in home: Yes Medications Mecications: Medications at Discharge (Home Meds & RX) buprenorphine 8 mg-naloxone 2 mg sublingual film (Suboxone) 8 mg sublingual BID 07/26/14 blood-glucose meter (Blood Glucose Monitoring kit) #1 ea 12/01/21 estradiol 1 mg tablet (Estrace) 1 mg PO QDAY 12/13/22 blood sugar diagnostic (Blood Glucose Test strips) #60 ea 11/16/23 lancets #100 ea 11/16/23 fluticasone propionate 50 mcg/actuation nasal spray,suspension See Rx Instructions .Route .COMPLEX #48 grams 03/20/24 albuterol sulfate 90 mcg/actuation aerosol inhaler 2 puff PO Q6H PRN for wheezing #8.5 grams 06/25/24 escitalopram oxalate 20 mg tablet 20 mg PO DAILY #30 tabs 11/20/24 fluticasone fur. 100 mcg-umeclid 62.5 mcg-vilant 25 mcg inhalat.powder (Trelegy Ellipta) 1 inh inhalation QDAY 11/20/24 hydrochlorothiazide 12.5 mg capsule 12.5 mg PO DAILY #30 caps 11/20/24 lisinopril 5 mg tablet See Rx Instructions .Route .COMPLEX #90 tabs 11/20/24 metformin 1,000 mg tablet 1,000 mg PO 2XD #180 tabs 11/20/24 potassium chloride 20 mEq tablet,extended release(part/cryst) See Rx I nstructions .Route .COMPLEX #30 tabs 11/20/24 rosuvastatin 20 mg tablet See Rx Instructions .Route .COMPLEX #30 tabs 11/20/24 triamterene 37.5 mg-hydrochlorothiazide 25 mg capsule 1 cap PO QAM PRN swelling #30 caps 11/21/24 semaglutide 1 mg/dose (4 mg/3 mL) subcutaneous pen injector (Ozempic) 1 mg (0.75 mL) subcut WEEKLY #3 mL 11/22/24 ondansetron 4 mg disintegrating tablet 4 mg PO Q8H PRN for nausea/vomiting #14 tabs 11/26/24 albuterol sulfate 2.5 mg/3 mL (0.083 %) solution for nebulization 2.5 mg (3 mL) inhalation Q4-6H PRN shortness of breath or wheezing #90 mL 12/04/24 levofloxacin 750 mg tablet 750 mg PO DAILY 5 days #5 tabs 12/04/24 nebulizer and compressor #1 ea 12/04/24 ondansetron 4 mg disintegrating tablet 4 mg PO Q6H PRN nausea and vomiting #30 tabs 12/04/24 Allergies Allergies Allergy/AdvReac Type Severity Reaction Status Date / Time Penicillins Allergy Severe Anaphylaxis Verified 12/04/24 12:09 strawberries AdvReac Unknown Uncoded 12/04/24 12:09 Review of Systems Constitutional: Reports No symptoms Head: Reports Normocephalic Eyes: Reports No symptoms Ears: Reports No symptoms Nose: Reports No symptoms Mouth: Reports No symptoms Throat: Reports No symptoms Cardiovascular: Reports No symptoms Respiratory: Reports Cough and Shortness of air Gastrointestinal: Reports Nausea Genitourinary: Reports No Symptoms Musculoskeletal: Reports No symptoms Endocrine: Reports No symptoms Hematology: Reports No symptoms Immunology: Reports No symptoms Neurological: Reports No symptoms Psychiatric: Reports No symptoms Physical Examination Appearance: Positive No Apparent Distress and Alert and Oriented x3 Head: Positive Normocephalic Eyes: Positive ALICIA ENT: Positive Not Examined Neck: Positive Supple, Non-Tender and Trachea Midline Heart: Positive RRR and No Murmurs Respiratory: Positive Airway patent, Breath Sounds Clear, Bilaterally, Breath Sounds Equal and Respirations Nonlabored GI/: Positive Soft, Nontender, Bowel sounds normal and No Distention Extremities: Positive Pedal Pulses Palpable Bilaterally Neurological: Positive Sensation Intact, Motor Intact, Reflexes Intact, Alert and Oriented Vital Signs (Last 4 Hours) Vital Signs Last 4 Hours: Vital Signs: Last 4 Hours 12/05/24 05:34 12/05/24 07:00 12/05/24 07:00 Oxygen Delivery Method Nasal Cannula Nasal Cannula Oxygen Flow Rate Telemetry Type Remote Telemetry Telemetry Monitoring Continues Irregular Telemetry Rate (Approximate) 80-90 BPM Telemetry Heart Rate 85 EKG VA Interval 0.12 EKG QRS Interval 0.09 Telemetry Strip Reading SR 12/05/24 08:00 12/05/24 08:00 12/05/24 09:00 Oxygen Delivery Method Room Air Nasal Cannula Nasal Cannula Oxygen Flow Rate 2 Telemetry Type Telemetry Monitoring Irregular Telemetry Rate (Approximate) Telemetry Heart Rate EKG VA Interval EKG QRS Interval Telemetry Strip Reading Labs This Visit Labs This Visit: Labs This Visit 12/04/24 12/04/24 12/04/24 12:24 12:45 15:39 WBC 10.55 H RBC 4.97 Hgb 14.3 Hct 44.6 MCV 89.7 MCH 28.8 MCHC 32.1 RDW Coeff of Karlos 12.5 Plt Count 341 Immature Gran % (Auto) 0.4 Neut % (Auto) 62.5 Lymph % (Auto) 29.6 [place] % (Auto) 5.9 Eos % (Auto) 1.2 Baso % (Auto) 0.4 Neut # (Auto) 6.6 Lymph # (Auto) 3.1 [place] # (Auto) 0.6 Eos # (Auto) 0.1 Baso # (Auto) 0.0 Immature Gran # (Auto) 0.0 Sodium 134.1 L Potassium 3.50 Chloride 91.4 L Carbon Dioxide 33.4 H Anion Gap 12.80 BUN 17.2 H Creatinine 1.22 Estimated GFR (MDRD) 49.00 BUN/Creatinine Ratio 14.09 Glucose 122.5 H Calcium 9.41 Total Bilirubin 1.04 AST 52.4 H ALT 34.2 Alkaline Phosphatase 117.7 Total Protein 8.40 H Albumin 4.64 Globulin 3.76 Albumin/Globulin Ratio 1.23 Urine Color Light Urine Clarity Clear Urine pH 6.0 Ur Specific [place] 1.015 Urine Protein 2+ H Urine Glucose (UA) Negative Urine Ketones Trace H Urine Blood Negative Urine Nitrite Negative Urine Bilirubin Negative Urine Urobilinogen 1.0 H Ur Leukocyte Esterase Negative Urine Microscopic RBC 2-5 Urine Microscopic WBC Ur Squamous Epith Cells 2-5 Urine Bacteria Urine Mucus Influ A Molecular Assay Negative by naat Influ B Molecular Assay Negative by naat SARS CoV-2 RNA Rapid TADEO Negative 12/04/24 12/05/24 19:27 05:12 WBC 12.17 H RBC 4.54 Hgb 13.1 Hct 40.6 MCV 89.4 MCH 28.9 MCHC 32.3 RDW Coeff of Karlos 12.5 Plt Count 289 Immature Gran % (Auto) 0.5 Neut % (Auto) 69.9 Lymph % (Auto) 21.4 [place] % (Auto) 6.8 Eos % (Auto) 1.2 Baso % (Auto) 0.2 Neut # (Auto) 8.5 H Lymph # (Auto) 2.6 [place] # (Auto) 0.8 Eos # (Auto) 0.1 Baso # (Auto) 0.0 Immature Gran # (Auto) 0.1 Sodium 135.1 Potassium 3.63 Chloride 92.2 L Carbon Dioxide 36.1 H Anion Gap 10.43 BUN 19.2 H Creatinine 1.30 Estimated GFR (MDRD) 46.00 BUN/Creatinine Ratio 14.76 Glucose 141.7 H Calcium 8.88 Total Bilirubin 0.63 AST 45.0 H ALT 28.9 Alkaline Phosphatase 104.7 Total Protein 7.45 Albumin 4.18 Globulin 3.27 Albumin/Globulin Ratio 1.27 Urine Color Yellow Urine Clarity Clear Urine pH 6.0 Ur Specific [place] 1.015 Urine Protein 1+ H Urine Glucose (UA) Negative Urine Ketones Trace H Urine Blood Negative Urine Nitrite Negative Urine Bilirubin Negative Urine Urobilinogen 0.2 Ur Leukocyte Esterase Negative Urine Microscopic RBC Urine Microscopic WBC 5-10 Ur Squamous Epith Cells 10-20 Urine Bacteria 1+ Urine Mucus 1+ Influ A Molecular Assay Influ B Molecular Assay SARS CoV-2 RNA Rapid TADEO Microbiology This Visit 12/04/24 19:27 Urine,Random Urine Culture - Preliminary Imaging Imaging: EXAM: FRONTAL CHEST RADIOGRAPH(S). 1 VIEW. History: Chest pain, shortness of breath Comparison: 06/03/2020 Findings: Heart size normal. No pneumothorax or pleural effusion. Patchy opacities in the lateral right lung base secondary to pneumonia, atelectasis, or parenchymal scarring. Impression: Please see above. Review Review Statement: I have independently reviewed and interpreted the labs/EKGs/imaging that were ordered by the ER provider. I have reviewed all outside records that are available currently in our EMR including imaging/notes/labs from previous visits. Plan Reccomendations/Plan: 1. Acute Hypoxic Respiratory Failure in setting of pneumonia - Resolved, weaned off oxygen, Maintaining sat above 92%. Likely baseline due to COPD 2. Community Acquired Pneumonia - Levaquin 750 mg daily, steroids, nebs, strep pneumo, legionella, sputum culture ordered and pending. Will contact patient if need to change medications. 3. UTI - suspect UA, urine culture pending - no growth at this time Additional Planning: Case discussed with ED Physician, Dr. Glover. DVT Prophylaxis: Ambulation Advanced Care Plannin minutes spent discussing advance care planning. Smoking Cessation: 3-10 minutes spent discussing smoking cessation. Disposition: Admit to: Med/Surg Observation Full code Discussed Plan of Care with Dr. Vito Gottlieb. If patient discharged with Left Ventricular Systolic Dysfunction: no Discharged with a beta gilda? [] If no, why not? [] Discharged with an luan/arb? [] If no, why not? [] Diagnosis: Pneumonia Diet: Diabetic Activity: as tolerated Follow-up with PCP next week. Medications: [facility] 1 * Levaquin (antibiotic) * Medrol pack (steroid pack) * Nebulizer treatments * Zofran (for nausea) Review With Patient Reviewed with Patient and Family: Patient and family have been counseled on condition and care plan and have no immediate questions. I have personally discussed and reviewed the patient's visit/current labs/imaging/decision making with Dr. Ember Gottlieb, my supervising attending. Total number of minutes spent with patient 85 min. More than 50% of the time spent with this patient was devoted to counseling and coordination of care. Time of Admission:12/04/24 16:38 Time of Discharge: 12/05/24 09:30 Discharge Plan Discharge Discharge Orders: Discharge Patient (ONCE); Ordered 12/05/24 Ordered By: ELIDIA AL Activity Restrictions/Additional Instructions: Diagnosis: Pneumonia Diet: Diabetic Activity: as tolerated Follow-up with PCP next week. Medications: [facility] 1 * Levaquin (antibiotic) * Medrol pack (steroid pack) * Nebulizer treatments * Zofran (for nausea) Instructions: Community Acquired Pneumonia (DC) Patient Disposition: HOME SELF-CARE Prescriptions: New levofloxacin 750 mg tablet 750 mg PO DAILY 5 Days Qty: 5 0RF (DME) nebulizer and compressor Device See Rx Instructions .ROUTE .MEDSUPPLY Qty: 1 0RF Rx Instructions: As directed albuterol sulfate 2.5 mg /3 mL (0.083 %) solution for nebulization 2.5 mg inhalation Q4-6H PRN (Reason: shortness of breath or wheezing) Qty: 90 0RF ondansetron 4 mg tablet,disintegrating 4 mg PO Q6H PRN (Reason: nausea and vomiting) Qty: 30 0RF methylprednisolone [Medrol (Eulalio)] 4 mg tablets,dose pack See Rx Instructions .ROUTE .COMPLEX Qty: 21 0RF Rx Instructions: orally per package directions Continued buprenorphine-naloxone [Suboxone] 1 EACH film 8 mg sublingual BID fluticasone propionate 50 mcg/actuation spray,suspension See Rx Instructions .ROUTE .COMPLEX Qty: 48 0RF Dose Instruction: SHAKE LIQUID AND USE 2 SPRAYS IN EACH NOSTRIL DAILY Rx Instructions: SHAKE LIQUID AND USE 2 SPRAYS IN EACH NOSTRIL DAILY albuterol sulfate 90 mcg/actuation HFA aerosol inhaler 2 puff PO Q6H PRN (Reason: for wheezing) Qty: 8.5 0RF triamterene-hydrochlorothiazid 37.5-25 mg capsule 1 cap PO QAM PRN (Reason: swelling) Qty: 30 0RF Ozempic 1 mg/dose (4 mg/3 mL) pen injector 1 mg subcut WEEKLY Qty: 3 2RF ondansetron 4 mg tablet,disintegrating 4 mg PO Q8H PRN (Reason: for nausea/vomiting) Qty: 14 0RF estradiol [Estrace] 1 mg tablet 1 mg PO QDAY Rx Instructions: off 1 week; repeat cycle Trelegy Ellipta 100-62.5-25 mcg blister with device 1 inh inhalation QDAY escitalopram oxalate 20 mg tablet 20 mg PO DAILY Qty: 30 5RF hydrochlorothiazide 12.5 mg capsule 12.5 mg PO DAILY Qty: 30 2RF lisinopril 5 mg tablet See Rx Instructions .ROUTE .COMPLEX Qty: 90 0RF Dose Instruction: TAKE 1 TABLET BY MOUTH DAILY Rx Instructions: TAKE 1 TABLET BY MOUTH DAILY metformin 1,000 mg tablet 1,000 mg PO 2XD Qty: 180 0RF potassium chloride 20 mEq tablet,ER particles/crystals See Rx Instructions .ROUTE .COMPLEX Qty: 30 0RF Dose Instruction: TAKE ONE TABLET DAILY; TAKE WITH HCTZ Rx Instructions: TAKE ONE TABLET DAILY; TAKE WITH HCTZ rosuvastatin 20 mg tablet See Rx Instructions .ROUTE .COMPLEX Qty: 30 5RF Dose Instruction: TAKE ONE TABLET DAILY Rx Instructions: TAKE ONE TABLET DAILY (DME) blood-glucose meter [Blood Glucose Monitoring] Kit See Rx Instructions .ROUTE Qty: 1 0RF Rx Instructions: As directed (DME) lancets Misc See Rx Instructions .ROUTE Qty: 100 0RF Rx Instructions: As directed to check blood sugar bid prn (DME) Blood Glucose Test Strip See Rx Instructions .ROUTE Qty: 60 2RF Rx Instructions: As directed to check blood sugar bid prn Did you review [place] [employer]AME [employer]CH[employer]IC for ALL controlled substances?: No Discussed opioids are addictive and Narcan is available by prescription or from pharmacy.: No Condition: Stable Referrals: SOPHIA GOTTLIEB MD [Primary Care Provider] - 12/12/24 3:00 pm
[2024-12-05 09:45] VITALS: BP 112/69; PULSE 90; RESP 19; TEMP 98
== END 2024-12-05 11:00 | disposition home or self-care (01) ==
LOC: ED 11:51 → MEDSURG B 11:51
PROVIDERS: ADMIT Hospitalist; ATTEND Nurse Practitioner Family
DX: J18.9 Pneumonia, unspecified organism; Z79.899 Other long term (current) drug therapy; E11.9 Type 2 diabetes mellitus without complications; Z79.84 Long term (current) use of oral hypoglycemic drugs; Z20.822 Contact with and (suspected) exposure to COVID-19; Z51.81 Encounter for therapeutic drug level monitoring; F17.210 Nicotine dependence, cigarettes, uncomplicated